=== PATIENT | female | born 1945 | race Caucasian/White ===

== ENCOUNTER 2021-05-19 15:11 | Inpatient (IN) | payer MEDICAID ==
[~2021-05-19] VITALS: Ht 154.9 cm; Wt 70.8 kg
[~2021-05-19 15:11] MED LIST: ASPI-1198 PO; ATEN-72 PO
[2021-05-19 16:51] LABS: BASOPHILS % (AUTO) 0.4 % (0.0-2.0); EOSINOPHILS % (AUTO) 1.4 % (1.0-6.0); HEMATOCRIT 40.5 % (36-46); HEMOGLOBIN 13.5 g/dL (12.0-16.0); LYMPHOCYTES # (AUTO) 1.5 K/uL (1.0-4.8); LYMPHOCYTES % (AUTO) 19.9 % (22.0-44.0); MEAN CORPUSCULAR HEMOGLOBIN 29.8 pg (26.0-34.0); MEAN CORPUSCULAR HGB CONC 33.2 G/dL (31.0-37.0); MEAN CORPUSCULAR VOLUME 90 fL (80-100); MONOCYTES # (AUTO) 0.4 K/uL (0.1-1.0); MONOCYTES % (AUTO) 4.8 % (2.0-9.0); NEUTROPHILS # (AUTO) 5.4 K/uL (1.8-7.7); NEUTROPHILS % (AUTO) 73.5 % (40.0-70.0); PLATELET COUNT (AUTO) 243 K/uL (150-450); RED BLOOD CELL COUNT(AUTO) 4.52 MIL/uL (4.00-5.20)
[2021-05-19 16:57] LABS: ANION GAP 9 mmol/L (8-16); CALCIUM, TOTAL 8.8 mg/dL (8.8-10.5); CARBON DIOXIDE 29 mmol/L (22-29); CHLORIDE 106 mmol/L (98-107); CREATININE 0.84 mg/dL (0.60-1.30); GLUCOSE,RANDOM 84 mg/dL (70-110); POTASSIUM 3.5 mmol/L (3.5-5.1); SODIUM SERUM 144 mmol/L (136-145); UREA NITROGEN, BLOOD 27 mg/dL (7-18)
[2021-05-19 16:58] LABS: GLOMERULAR FILTR. RATE CALC > 60 mL/min (>60)
[2021-05-19 17:06] LABS: ALANINE AMINOTRANSFERASE 16 U/L (12-78); ALBUMIN 3.8 g/dL (3.4-5.0); ALKALINE PHOSPHATASE 67 U/L (46-116); ASPARTATE AMINOTRANSFERASE 24 U/L (15-37); BILIRUBIN,TOTAL 0.3 mg/dL (0.1-1.0)
[2021-05-19 19:18] LABS: COVID AG,FIA SOURCE NASOPHARYNGEAL
[2021-05-19 19:23] LABS: APPEARANCE,URINE CLEAR (CLEAR); BILIRUBIN,URINE NEGATIVE (NEGATIVE); GLUCOSE, URINE (UA) NEGATIVE (NEGATIVE); KETONES,URINE NEGATIVE (NEGATIVE); LEUKOCYTE ESTERASE ,URINE NEGATIVE (NEGATIVE); NITRATE,URINE NEGATIVE (NEGATIVE); OCCULT BLOOD,URINE SMALL (NEGATIVE); PROTEIN,URINE TRACE mg/dL (NEGATIVE); SPECIFIC GRAVITIY, URINE 1.026 (1.003-1.030); UROBILINOGEN,URINE <=1.0 mg/dL (<=1.0)
[2021-05-19 19:29] LABS: AMPHET/METH SCREEN,URINE NEGATIVE (NEGATIVE); BARBITURATE SCREEN, URINE NEGATIVE (NEGATIVE); BENZODIAZEPINES SCREEN,URINE NEGATIVE (NEGATIVE); CANNABINOID SCREEN,URINE NEGATIVE (NEGATIVE); COCAINE SCREEN,URINE NEGATIVE (NEGATIVE); METHADONE SCREEN, URINE NEGATIVE (NEGATIVE); OPIATE SCREEN,URINE NEGATIVE (NEGATIVE)
[2021-05-19 19:30] LABS: PHENCYCLIDINE SCREEN,URINE NEGATIVE (NEGATIVE)
[2021-05-19 19:33] LABS: BACTERIA,URINE Rare /HPF (None Seen); SQUAMOUS EPITHELIAL CELL,UR Few /LPF (None Seen); WBC,URINE 0-2 /HPF (0-5)
[2021-05-20] MEDS: ATENOLOL 50 MG TABLET PO ONE ×3 (19:44→21:03)
[2021-05-20] MEDS: ZOLPIDEM TARTRATE 10 MG TABLET PO PRN (19:47)
[2021-05-20] MEDS: QUEtiapine FUMARATE 100 MG TABLET PO PRN (19:47)
[2021-05-21 01:52] VITALS: BP 162/89
[2021-05-21] MEDS: AmLODIPine BESYLATE 5 MG TABLET PO SCH (06:50)
[2021-05-21 08:10] VITALS: BP 164/73
[2021-05-21] MEDS: ARIPiprazole 10 MG TABLET PO SCH (10:13)
[2021-05-21] MEDS ORDERED: DOCUSATE SODIUM 100 MG CAPSULE PO PRN (13:30)
[2021-05-21] MEDS ORDERED: MAGNESIUM HYDROXIDE SUSPENSION 30 ML UDCUP PO PRN (13:30)
[2021-05-21] MEDS ORDERED: ONDANSETRON HCL 4 MG TABLET PO PRN (13:30)
[2021-05-21] MEDS ORDERED: PETROLATUM,WHITE 28 GM JELLY TP PRN (13:30)
[2021-05-21] MEDS ORDERED: MAG HYDROX/AL HYDROX/SIMETH ES 30 ML SUSPENSION UDCUP PO PRN (13:30)
[2021-05-21] MEDS ORDERED: GuaiFENesin/D-METHORPHAN [SUGAR-FREE] 200-20MG/10 ML SYRUP UDCUP PO PRN (13:30)
[2021-05-21] MEDS ORDERED: CloNIDine HCL 0.1 MG TABLET PO PRN (13:30)
[2021-05-21] MEDS ORDERED: ACETAMINOPHEN 325 MG TABLET PO PRN (13:30)
[2021-05-21] MEDS ORDERED: NICOTINE 14 MG/24 HOUR PATCH TD PRN (13:30)
[2021-05-21] MEDS ORDERED: ALBUTEROL SULFATE HFA 90 MCG/PUFF 8 GM INHALER IH PRN (13:30)
[2021-05-21] MEDS ORDERED: LOPERAMIDE HCL 2 MG CAPSULE PO PRN (13:30)
[2021-05-21 16:11] VITALS: BP 112/73
[2021-05-22 05:33] VITALS: BP 115/75
[2021-05-22] MEDS: AmLODIPine BESYLATE 5 MG TABLET PO SCH (08:34)
[2021-05-22] MEDS: ARIPiprazole 10 MG TABLET PO SCH (08:34)
[2021-05-22 10:23] VITALS: BP 145/84
[2021-05-22 16:12] VITALS: BP 148/83
[2021-05-22] MEDS: LORazepam 2 MG TABLET PO PRN (19:29)
[2021-05-23 00:59] VITALS: BP 154/88
[2021-05-23] MEDS: LORazepam 2 MG TABLET PO PRN (01:12)
[2021-05-23 02:14] VITALS: BP 142/80
[2021-05-23 08:16] VITALS: BP 149/97
[2021-05-23] MEDS: AmLODIPine BESYLATE 5 MG TABLET PO SCH (08:46)
[2021-05-23] MEDS: ARIPiprazole 10 MG TABLET PO SCH (08:46)
[2021-05-23 16:04] VITALS: BP 157/91
[2021-05-24 02:14] VITALS: BP 148/82
[2021-05-24 08:05] VITALS: BP 121/66
[2021-05-24] MEDS: ARIPiprazole 10 MG TABLET PO SCH (08:08)
[2021-05-24] MEDS: AmLODIPine BESYLATE 5 MG TABLET PO SCH (08:08)
[2021-05-24 16:02] VITALS: BP 152/91
[2021-05-24] MEDS: LORazepam 2 MG TABLET PO PRN (18:16)
[2021-05-24] MEDS: QUEtiapine FUMARATE 100 MG TABLET PO PRN (22:03)
[2021-05-25 05:13] VITALS: BP 136/87
[2021-05-25 08:07] VITALS: BP 155/97
[2021-05-25] MEDS: ARIPiprazole 10 MG TABLET PO SCH (08:19)
[2021-05-25] MEDS: AmLODIPine BESYLATE 5 MG TABLET PO SCH (08:19)
[2021-05-25 12:00] VITALS: BP 138/88
[2021-05-25 16:09] VITALS: BP 111/74
[2021-05-26 03:34] VITALS: BP 128/82
[2021-05-26] MEDS: ARIPiprazole 10 MG TABLET PO SCH (08:06)
[2021-05-26] MEDS: AmLODIPine BESYLATE 5 MG TABLET PO SCH (08:06)
[2021-05-26 08:11] VITALS: BP 129/69
[2021-05-26] MEDS: LORazepam 2 MG TABLET PO PRN (14:13)
[2021-05-26 16:11] VITALS: BP 147/80
[2021-05-27] VITALS (7 sets, daily range): BP systolic 106–143; BP diastolic 70–98
[2021-05-27] MEDS: AmLODIPine BESYLATE 5 MG TABLET PO SCH (08:05)
[2021-05-27] MEDS: ARIPiprazole 10 MG TABLET PO SCH (08:05)
[2021-05-27] MEDS: LORazepam 2 MG TABLET PO PRN (21:31)
[2021-05-27 23:01] LABS: GLUCOMETER DEV NAME(LOC) POC.BV
[2021-05-28] MEDS: LORazepam 2 MG TABLET PO PRN ×2 (01:36→16:37)
[2021-05-28 08:12] VITALS: BP 121/69
[2021-05-28] MEDS: AmLODIPine BESYLATE 5 MG TABLET PO SCH (08:13)
[2021-05-28] MEDS: ARIPiprazole 10 MG TABLET PO SCH (08:13)
[2021-05-28] MEDS: IBUPROFEN 400 MG TABLET PO PRN (08:50)
[2021-05-28 16:24] VITALS: BP 147/86
[2021-05-29 01:34] VITALS: BP 126/80
[2021-05-29 08:05] VITALS: BP 153/85
[2021-05-29] MEDS: ARIPiprazole 15 MG TABLET PO SCH (08:06)
[2021-05-29] MEDS: AmLODIPine BESYLATE 5 MG TABLET PO SCH (08:07)
[2021-05-29 13:23] VITALS: BP 145/78
[2021-05-29 16:49] VITALS: BP 154/94
[2021-05-30 00:54] VITALS: BP 152/82
[2021-05-30] MEDS: ARIPiprazole 15 MG TABLET PO SCH (07:50)
[2021-05-30] MEDS: AmLODIPine BESYLATE 5 MG TABLET PO SCH (07:50)
[2021-05-30 08:03] VITALS: BP 157/85
[2021-05-30] MEDS: LORazepam 2 MG TABLET PO PRN (12:30)
[2021-05-30 14:00] VITALS: BP 146/94
[2021-05-30 16:26] VITALS: BP 149/85
[2021-05-31 08:15] VITALS: BP 133/72
[2021-05-31] MEDS: AmLODIPine BESYLATE 5 MG TABLET PO SCH (08:18)
[2021-05-31] MEDS: ARIPiprazole 15 MG TABLET PO SCH (08:18)
[2021-05-31] MEDS: MULTIVITAMINS WITH MINERALS, THERAPEUTIC TABLET PO SCH (08:18)
[2021-05-31 16:11] VITALS: BP 156/74
[2021-05-31] MEDS: LORazepam 2 MG TABLET PO PRN (18:17)
[2021-05-31] MEDS: ZOLPIDEM TARTRATE 10 MG TABLET PO PRN (20:11)
[2021-06-01 06:27] VITALS: BP 130/81
[2021-06-01] MEDS: ARIPiprazole 15 MG TABLET PO SCH (08:03)
[2021-06-01] MEDS: LORazepam 2 MG TABLET PO PRN (08:03)
[2021-06-01] MEDS: MULTIVITAMINS WITH MINERALS, THERAPEUTIC TABLET PO SCH (08:03)
[2021-06-01] MEDS: AmLODIPine BESYLATE 5 MG TABLET PO SCH (08:03)
[2021-06-01 08:08] VITALS: BP 135/78
[2021-06-01] MEDS: IBUPROFEN 400 MG TABLET PO PRN (14:07)
[2021-06-01 16:24] VITALS: BP 138/76
[2021-06-01] MEDS: ZOLPIDEM TARTRATE 10 MG TABLET PO PRN (20:20)
[2021-06-02 06:19] VITALS: BP 130/71
[2021-06-02] MEDS: ARIPiprazole 15 MG TABLET PO SCH (08:06)
[2021-06-02] MEDS: AmLODIPine BESYLATE 5 MG TABLET PO SCH (08:06)
[2021-06-02] MEDS: MULTIVITAMINS WITH MINERALS, THERAPEUTIC TABLET PO SCH (08:06)
[2021-06-02 08:19] VITALS: BP 143/85
[2021-06-02 16:12] VITALS: BP 149/85
[2021-06-03 00:31] VITALS: BP 142/76
[2021-06-03 08:06] VITALS: BP 149/84
[2021-06-03] MEDS: ARIPiprazole 15 MG TABLET PO SCH (08:20)
[2021-06-03] MEDS: MULTIVITAMINS WITH MINERALS, THERAPEUTIC TABLET PO SCH (08:21)
[2021-06-03] MEDS: AmLODIPine BESYLATE 5 MG TABLET PO SCH (08:21)
[2021-06-03 17:11] VITALS: BP 143/78
[2021-06-04 08:03] VITALS: BP 154/90
[2021-06-04] MEDS: ARIPiprazole 15 MG TABLET PO SCH (08:07)
[2021-06-04] MEDS: MULTIVITAMINS WITH MINERALS, THERAPEUTIC TABLET PO SCH (08:07)
[2021-06-04] MEDS: AmLODIPine BESYLATE 5 MG TABLET PO SCH (08:07)
[2021-06-04] MEDS ORDERED: AMLO-257 PO (09:12)
[2021-06-04] MEDS ORDERED: ARIP15TA27 PO (09:12)
[2021-06-04 16:05] VITALS: BP 145/79
== END 2021-06-04 18:17 | disposition home or self-care (01) | DRG 754 ==
LOC: EMS 15:14 → B3A 05-21 00:55
PROVIDERS: ADMIT Psychiatry & Neurology Psychiatry; ATTEND Psychiatry & Neurology Psychiatry
DX: F32.9 Major depressive disorder, single episode, unspecified (principal); F20.9 Schizophrenia, unspecified; F41.9 Anxiety disorder, unspecified; G47.00 Insomnia, unspecified; G89.29 Other chronic pain; I10 Essential (primary) hypertension; Z59.00 Homelessness unspecified; Z79.899 Other long term (current) drug therapy; Z90.710 Acquired absence of both cervix and uterus; Z90.49 Acquired absence of other specified parts of digestive tract
CPT/HCPCS: 80053; 81001; 84484; 85025; 99285; G0480